=== PATIENT | female | born 1970 | race Caucasian/White ===

== ENCOUNTER → 2022-02-12 | Outpatient (CLI) | payer BC | LOC: MRI 10:39 | PROVIDERS: ATTEND Specialist | DX: M54.41 Lumbago with sciatica, right side (principal); G89.29 Other chronic pain | CPT/HCPCS: 72148 ==

== ENCOUNTER 2022-03-16 16:00 | Outpatient (RCR) | payer BC | END 2022-03-22 | LOC: PT 16:00 | PROVIDERS: ATTEND Specialist | DX: M70.61 Trochanteric bursitis, right hip (principal) ==

== ENCOUNTER 2022-04-07 17:00 | Outpatient (RCR) | payer BC | END 2022-04-21 | LOC: PT 17:00 | PROVIDERS: ATTEND Specialist | DX: M70.61 Trochanteric bursitis, right hip (principal) ==

== ENCOUNTER → 2024-04-02 | Outpatient (REF) | payer BC ==
[~2024-04-02] MED LIST: PROGESTERONE200 MG
== END ==
LOC: MAMMO 13:19
PROVIDERS: ATTEND Obstetrics & Gynecology
DX: Z12.31 Encounter for screening mammogram for malignant neoplasm of breast (principal)
CPT/HCPCS: 77067